=== PATIENT | male | born 1950 | race Hispanic/Latino ===

== ENCOUNTER 2017-02-22 15:37 | Emergency (ER) | payer OTHER ==
[2017-02-22 15:53] VITALS: PULSE 86; RESP 16; TEMP 97.8; O2SAT 99
--- NOTE | 2017-02-22 16:28 | ED PDOC ---
HPI: Allergic Reaction Time Seen by Provider: 02/22/17 15:57 Chief Complaint (Nursing): Allergic Reaction Chief Complaint (Provider): rash History Per: Patient History/Exam Limitations: no limitations Onset/Duration Of Symptoms: Hrs (x2) Current Symptoms Are (Timing): Gone Now Additional Complaint(s): Anam Bettencourt is a 66 year old male who presents to the ED due to a bilateral arm rash x2 hours. Patient states he was prescribed Amoxicillin to take prior to a dental procedure. He states after taking 4 pills at 14:15, both arms and hands turned bright red and were itchy, but symptoms have since subsided. Denies vomiting and shortness of breath. His dentist told him to come to ED. PMD: Non-[facility] Provider Past Medical History Reviewed: Historical Data, Nursing Documentation, Vital Signs Vital Signs: Last Vital Signs Temp 97.8 F 02/22/17 15:50 Pulse 86 02/22/17 15:50 Resp 16 02/22/17 15:50 BP 183/102 H 02/22/17 15:50 Pulse Ox 99 02/22/17 15:50 - Medical History PMH: Back Problems, HTN - Surgical History Surgical History: Appendectomy Other surgeries: Neck surgery - Family History Family History: States: No Known Family Hx - Living Arrangements Living Arrangements: With Family - Social History Current smoker - smoking cessation education provided: No Alcohol: None Drugs: Denies - Allergies Allergies/Adverse Reactions: Allergies Allergy/AdvReac Type Severity Reaction Status Date / Time No Known Allergies Allergy Verified 02/22/17 15:49 Review of Systems ROS Statement: Except As Marked, All Systems Reviewed And Found Negative Constitutional: Negative for: Fever ENT: Negative for: Mouth Pain, Mouth Swelling Respiratory: Negative for: Shortness of Breath Gastrointestinal: Negative for: Vomiting Skin: Positive for: Rash (bilateral arms, itchy) Physical Exam - Reviewed Nursing Documentation Reviewed: Yes Vital Signs Reviewed: Yes - Physical Exam Appears: Positive for: Well, Non-toxic, No Acute Distress Head Exam: Positive for: ATRAUMATIC, NORMAL INSPECTION, NORMOCEPHALIC Skin: Positive for: Normal Color, Rash (Slight erythema noted to bilateral forearms and hands with no edema, no other rash or skin eruption noted) Eye Exam: Positive for: Normal appearance ENT: Positive for: Other (No pharyngeal edema, airway patent, uvula midline, Overall dentition intact. Multiple dental caries noted. No dental abscess) Cardiovascular/Chest: Positive for: Regular Rate, Rhythm Respiratory: Positive for: Normal Breath Sounds. Negative for: Respiratory Distress Back: Positive for: Normal Inspection Neurologic/Psych: Positive for: Alert, Oriented, Gait (steady) - ECG O2 Sat by Pulse Oximetry: 99 (RA) Pulse Ox Interpretation: Normal - Progress ED Course And Treament: [facility] Time: 16:26 Initial Impression: 66 year old male with adverse reaction to medication Plan: --Spoke with patient about diagnosis and patient was cleared to proceed with dental procedure. Upon evaluation patient is medically stable, and requires no further treatment in the ED at this time. There is agreement to discharge plan. Return if symptoms persist or worsen. Scribe Attestation: Documented by Herbert Rosenbaum, acting as a scribe for Keturah Martinez PA-C Provider Scribe Attestation: All medical record entries made by the Scribe were at my direction and personally dictated by me. I have reviewed the chart and agree that the record accurately reflects my personal performance of the history, physical exam, medical decision making, and the department course for this patient. I have also personally directed, reviewed, and agree with the discharge instructions and disposition. Disposition - Clinical Impression Clinical Impression: Adverse reaction to antibiotic - Patient ED Disposition Is Patient to be Admitted: No Counseled Patient/Family Regarding: Diagnosis, Need For Followup - Disposition Referrals: [facility] [Outside] Disposition: Routine/Home Disposition Time: 16:26 Condition: STABLE Additional Instructions: Patient has minor allergic reaction to antibiotic causing rash to arms which has subsided. Patient can proceed with dental procedures as scheduled. Consider prophylactic medication with clindamycin instead of amoxicillin going forward. Instructions: Adverse Drug Reaction (ED) Forms: [employer] (German)
[2017-02-22 16:49] VITALS: BP 158/90
== END 2017-02-22 16:56 | disposition home or self-care (01) ==
LOC: H.ER 15:37
DX: T36.95XA Adverse effect of unspecified systemic antibiotic, initial encounter (principal); I10 Essential (primary) hypertension

== ENCOUNTER 2018-06-11 12:46 | Emergency (ER) | payer SELFPAY ==
[2018-06-11 12:52] VITALS: BP 108/57; PULSE 88; TEMP 97.1; O2SAT 98
--- NOTE | 2018-06-11 13:26 | ED PDOC ---
HPI: Psych/Substance Abuse Time Seen by Provider: 06/11/18 12:53 Chief Complaint (Nursing): Dizziness/Lightheaded Chief Complaint (Provider): Drug / Alcohol Use History Per: Patient History/Exam Limitations: no limitations Additional History Per: EMS Additional Complaint(s): 67 year old male presents to the ED via EMS for evaluation for alcohol and drug use. Patient states that he is staying at the hotel and "partied too much" with alcohol, marijuana, Viagra, and snorting cocaine. He notes he also took five Advil in five hours, but this is not new for him. Patient reports that he was on the floor of his room trying to get into bed when his friend sent hotel management to check up on him and they found him on the floor, prompting a call to 911. Patient denies chest pain, loss of consciousness, paresthesia, weakness, and any physical complaints. PMD: none provided Past Medical History Reviewed: Historical Data, Nursing Documentation, Vital Signs Vital Signs: Last Vital Signs Temp 97.1 F L 06/11/18 12:48 Pulse 88 06/11/18 12:48 Resp 20 06/11/18 12:48 BP 108/57 L 06/11/18 12:48 Pulse Ox 98 06/11/18 12:48 - Medical History PMH: Back Problems, HTN - Surgical History Surgical History: Appendectomy, Back Surgery - Family History Family History: States: Unknown Family Hx - Social History Current smoker - smoking cessation education provided: Yes Alcohol: Social Drugs: Cannabis, Cocaine - Allergies Allergies/Adverse Reactions: Allergies Allergy/AdvReac Type Severity Reaction Status Date / Time No Known Allergies Allergy Verified 06/11/18 12:48 Review of Systems ROS Statement: Except As Marked, All Systems Reviewed And Found Negative Cardiovascular: Negative for: Chest Pain Neurological: Negative for: Weakness, Other (loss of consciousness; paresthesia) Psych: Positive for: Other (drug / alcohol use) Physical Exam - Reviewed Nursing Documentation Reviewed: Yes Vital Signs Reviewed: Yes - Physical Exam Appears: Positive for: No Acute Distress Head Exam: Positive for: ATRAUMATIC, NORMAL INSPECTION, NORMOCEPHALIC Skin: Positive for: Normal Color. Negative for: Rash Eye Exam: Positive for: Normal appearance Neck: Positive for: Normal, Painless ROM, Supple Cardiovascular/Chest: Positive for: Regular Rate, Rhythm Respiratory: Positive for: Normal Breath Sounds. Negative for: Respiratory Distress Gastrointestinal/Abdominal: Positive for: Normal Exam, Soft. Negative for: Tenderness Back: Positive for: Normal Inspection Extremity: Positive for: Normal ROM (all extremities) Neurological/Psych: Positive for: Awake, Alert, Normal Tone, Oriented (x3), Gait (steady, unassisted). Negative for: Motor/Sensory Deficits - ECG O2 Sat by Pulse Oximetry: 98 (RA) Pulse Ox Interpretation: Normal Medical Decision Making Medical Decision Makin Patient refuses further care, evaluation or treatment in the ER. Patient informed of the reasons for the following and planned treatment, which patient understands, however still refuses. Patient informed of the risk and benefits of treatment. Informed that the risk could include worsening of current conditions, undiagnosed conditions, disability or even . Patient understands the following risk and the benefits of treatment. Patient has the capacity to make decisions and still refuses treatment by RN, PA and ER MD. Patient encouraged to return to the ER at any time and to follow up with pmd. Patient signed out AMA. Scribe Attestation: Documented by Mary Ann Pedroza, acting as a scribe for Noris Brwon MD. Provider Scribe Attestation: All medical record entries made by the Scribe were at my direction and personally dictated by me. I have reviewed the chart and agree that the record accurately reflects my personal performance of the history, physical exam, medical decision making, and the department course for this patient. I have also personally directed, reviewed, and agree with the discharge instructions and disposition. Disposition - Clinical Impression Clinical Impression: Polysubstance abuse - Disposition Disposition: Against Medical Advice Disposition Time: 13:00 Condition: UNKNOWN Forms: [employer] (Czech)
[2018-06-11 13:35] VITALS: RESP 16
== END 2018-06-11 13:30 | disposition left against medical advice (07) ==
LOC: H.ER 12:46
DX: F19.10 Other psychoactive substance abuse, uncomplicated (principal); F17.200 Nicotine dependence, unspecified, uncomplicated; I10 Essential (primary) hypertension